=== PATIENT | female | born 1970 | race African-American/Black ===

== ENCOUNTER 2017-06-23 07:14 | Emergency (ER) | payer BC ==
[~2017-06-23] VITALS: Ht 177.8 cm; Wt 88.0 kg
[~2017-06-23 07:14] MED LIST: BACTRIM; BENTYL 10 MG CA10 M1 PO; CELEXA40 MG PO; CIPRO 500MG TA500 MG PO; CLONAZEPAM PO; FLAGYL500 MG PO; HYDROCODON-ACE1 EACH PO; MACROBID 100 M100 M1 PO; NAPROSYN500 MG PO; NORCO 5-325 TA1 EACH PO; PHENERGAN 25 MG25 M1 PO; TIZANIDINE HCL4 M1 PO; TRAMADOL 50 MG50 MG PO; VALERIAN ROOT PO; ZOFRAN 4 MG ORAL4 MG PO; ZOFRAN ODT4 MG PO
[2017-06-23 07:17] VITALS: BP 145/60
[2017-06-23] MEDS ORDERED: PREDNISONE 20 M20 MG PO (07:53)
[2017-06-23] MEDS ORDERED: TRAMADOL 50 MG50 MG PO (07:53)
== END 2017-06-23 08:52 | disposition home or self-care (01) ==
LOC: ER 07:14
DX: M54.32 Sciatica, left side (principal); F32.9 Major depressive disorder, single episode, unspecified; F41.9 Anxiety disorder, unspecified; Z86.2 Personal history of diseases of the blood and blood-forming organs and certain disorders involving the immune mechanism; Z98.890 Other specified postprocedural states; Z88.1 Allergy status to other antibiotic agents

== ENCOUNTER 2017-08-11 22:02 | Inpatient (IN) | payer BC ==
[~2017-08-11] VITALS: Ht 177.8 cm; Wt 86.2 kg
--- NOTE | ~2017-08-11 | EKG ---
[address] [address] ELECTROCARDIOGRAM REPORT Name: POLLY CHASE Room #: 418- ADM IN M.R.#: [id number] Admission: 08/12/17 Attend Phys: Kvng Hinds MD Discharge: Date of : 72 Report #: [id number] THIS REPORT FOR: //name// [facility] ED Test Date: 2017-08-12 Test Time: 10:59:33 Pat Name: POLLY CHASE Department: Room: 418 Gender: F Manager [employer] Development: jreif : 1970 Requested By: La Nena Avalos Order Number: [id number] MD: Brent Mccarty Measurements Intervals [place] Rate: 75 P: 62 TN: 143 QRS: 44 QRSD: 98 T: 20 QT: 357 QTc: 399 Interpretive Statements Sinus rhythm Nonspecific T wave abnormality Compared to ECG 02/19/2007 12:50:25 No significant changes Electronically Signed On 08-13-2017 7:53:05 ACID CONCENTRATOR by Brent Mccarty [email or web address] <ELECTRONICALLY SIGNED> By: Brent Mccarty MD, [facility] 08/13/17 0753 1059 1059 Brent Mccarty MD, [facility] /EPI
[~2017-08-11 22:02] MED LIST changes: +PREDNISONE 20 M20 MG PO
[2017-08-11 22:20] VITALS: BP 164/79
[2017-08-11 22:51] LABS: URINE BILIRUBIN NEGATIVE (Negative); URINE BLOOD 1+ (Negative); URINE CLARITY SL CLOUDY; URINE COLOR YELLOW; URINE GLUCOSE-RANDOM* NEGATIVE (Negative); URINE KETONES NEGATIVE (Negative); URINE NITRITE-REFLEX NEGATIVE (Negative); URINE PROTEIN (DIPSTICK) 1+ (Negative); URINE UROBILINOGEN 0.2 E.U./dl (0.2-1.0)
[2017-08-11 22:52] LABS: URINE LEUKOCYTES-REFLEX TRACE (Negative)
[2017-08-11 23:05] LABS: SQUAMOUS >10 Many /LPF (0-3)
[2017-08-11 23:06] LABS: CASTS None Seen /LPF (None Seen); CRYSTALS None Seen /LPF (None Seen); URINE RBC 3-10 Few /HPF (0-2); URINE WBC-REFLEX >25 Many /HPF (0-5)
[2017-08-11 23:26] LABS: HEMATOCRIT 32.3 % (37.0-47.0); HEMOGLOBIN 10.8 gm/dL (12.0-15.0); MCH 33.4 pg (26.0-34.0); MCHC 33.5 g/dL (28.0-37.0); MCV 99.7 fL (80.0-100.0); PLATELET COUNT 248 thou/uL (150-400); RBC 3.24 mil/uL (4.20-5.00); RDW 12.9 % (10.5-14.5); WBC 19.5 thou/uL (4.0-11.0)
[2017-08-11] MEDS ORDERED: COZAAR 50 MG TA50 M2 PO (23:28)
[2017-08-11] MEDS ORDERED: ZOCOR20 MG PO (23:28)
[2017-08-11] MEDS ORDERED: MOBIC15 MG PO (23:29)
[2017-08-11 23:35] LABS: CALCIUM 8.9 mg/dL (8.5-10.1); CREATININE 0.8 mg/dL (0.6-1.0); POTASSIUM 3.7 mmol/L (3.5-5.1)
[2017-08-11 23:41] LABS: ALBUMIN 3.7 g/dL (3.4-5.0); TOTAL BILIRUBIN 1.1 mg/dL (<0.1-1.0); TOTAL PROTEIN 7.5 g/dL (6.4-8.2)
[2017-08-12 00:34] LABS: ABSOLUTE NEUTROPHILS 16.6 thou/uL (1.4-8.2)
[2017-08-12 08:49] LABS: HEMATOCRIT 32.7 % (37.0-47.0); HEMOGLOBIN 10.9 gm/dL (12.0-15.0); MCH 33.4 pg (26.0-34.0); MCHC 33.3 g/dL (28.0-37.0); MCV 100.3 fL (80.0-100.0); RBC 3.26 mil/uL (4.20-5.00); RDW 12.9 % (10.5-14.5); WBC 22.7 thou/uL (4.0-11.0)
[2017-08-12 08:55] LABS: CALCIUM 8.7 mg/dL (8.5-10.1); CREATININE 0.9 mg/dL (0.6-1.0); POTASSIUM 3.6 mmol/L (3.5-5.1)
[2017-08-12 11:27] VITALS: BP 171/80
[2017-08-12 11:54] VITALS: BP 153/79
[2017-08-12 19:05] VITALS: BP 132/71
[2017-08-13 03:35] VITALS: BP 143/80
[2017-08-13 07:15] VITALS: BP 137/72
[2017-08-13 09:02] LABS: HEMATOCRIT 31.3 % (37.0-47.0); HEMOGLOBIN 10.2 gm/dL (12.0-15.0); MCH 32.8 pg (26.0-34.0); MCHC 32.5 g/dL (28.0-37.0); MCV 100.9 fL (80.0-100.0); RBC 3.1 mil/uL (4.20-5.00); RDW 12.8 % (10.5-14.5); WBC 15.2 thou/uL (4.0-11.0)
[2017-08-13 09:14] LABS: CALCIUM 8.4 mg/dL (8.5-10.1); CREATININE 0.8 mg/dL (0.6-1.0); POTASSIUM 3.8 mmol/L (3.5-5.1)
[2017-08-13 15:29] VITALS: BP 174/88
[2017-08-13 19:10] VITALS: BP 113/65
[2017-08-13 19:25] VITALS: BP 144/83
[2017-08-13 23:40] VITALS: BP 155/81
[2017-08-14 04:16] VITALS: BP 174/94
[2017-08-14 05:57] LABS: HEMATOCRIT 27.7 % (37.0-47.0); HEMOGLOBIN 9.3 gm/dL (12.0-15.0); MCH 33.8 pg (26.0-34.0); MCHC 33.6 g/dL (28.0-37.0); MCV 100.7 fL (80.0-100.0); RBC 2.75 mil/uL (4.20-5.00); RDW 12.7 % (10.5-14.5); WBC 11.1 thou/uL (4.0-11.0)
[2017-08-14 06:09] LABS: CALCIUM 8.4 mg/dL (8.5-10.1); CREATININE 0.7 mg/dL (0.6-1.0); MAGNESIUM 1.9 mg/dL (1.8-2.4); POTASSIUM 3.5 mmol/L (3.5-5.1)
[2017-08-14 07:11] VITALS: BP 179/69
[2017-08-14 15:02] VITALS: BP 156/69
[2017-08-14 19:42] VITALS: BP 152/73
[2017-08-15 03:38] VITALS: BP 155/85
[2017-08-15 06:13] LABS: HEMOGLOBIN 9.6 gm/dL (12.0-15.0); MCH 33.3 pg (26.0-34.0); MCHC 33.1 g/dL (28.0-37.0); MCV 100.7 fL (80.0-100.0); RBC 2.88 mil/uL (4.20-5.00); RDW 12.4 % (10.5-14.5); WBC 9.1 thou/uL (4.0-11.0)
[2017-08-15 06:30] LABS: CALCIUM 8.4 mg/dL (8.5-10.1); CREATININE 0.7 mg/dL (0.6-1.0); MAGNESIUM 1.8 mg/dL (1.8-2.4); POTASSIUM 3.5 mmol/L (3.5-5.1)
[2017-08-15 08:25] VITALS: BP 178/70
[2017-08-15] MEDS ORDERED: CIPRO500 MG PO (13:47)
[2017-08-15 15:02] VITALS: BP 178/70
== END 2017-08-15 15:48 | disposition home or self-care (01) | DRG 872 ==
LOC: ER 22:02 → 4E 08-12 01:15 → EROBS 08-12 01:15 → 4E 08-12 11:41
PROVIDERS: Internal Medicine; Nurse Practitioner Acute Care; Physician Assistant
DX: A41.9 Sepsis, unspecified organism (principal); N12 Tubulo-interstitial nephritis, not specified as acute or chronic; F32.9 Major depressive disorder, single episode, unspecified; I10 Essential (primary) hypertension; F41.9 Anxiety disorder, unspecified; E78.00 Pure hypercholesterolemia, unspecified; Z88.1 Allergy status to other antibiotic agents; Z90.710 Acquired absence of both cervix and uterus; Z82.49 Family history of ischemic heart disease and other diseases of the circulatory system
CPT/HCPCS: 10084

== ENCOUNTER 2018-08-29 22:22 | Emergency (ER) | payer BC ==
[~2018-08-29] VITALS: Ht 177.8 cm; Wt 85.7 kg
[~2018-08-29 22:22] MED LIST changes: +CIPRO500 MG PO; +COZAAR 50 MG TA50 M2 PO; +MOBIC15 MG PO; +ZOCOR20 MG PO
[2018-08-29] MEDS ORDERED: FOLIC ACID1 MG PO (22:33)
[2018-08-29] MEDS ORDERED: ACYCLOVIR 200200 MG PO (22:34)
[2018-08-29] MEDS ORDERED: CENTRUM SILVER1 EAC4 PO (22:34)
[2018-08-29] MEDS ORDERED: VITAMIN B-12500 MCG PO (22:34)
[2018-08-30 00:56] LABS: HEMATOCRIT 32.7 % (37.0-47.0); HEMOGLOBIN 11.2 gm/dL (12.0-15.0); MCHC 34.3 g/dL (28.0-37.0); MCV 99.1 fL (80.0-100.0); PLATELET COUNT 291 thou/uL (150-400); RDW 12.9 % (10.5-14.5); WBC 7.5 thou/uL (4.0-11.0)
[2018-08-30 00:57] LABS: URINE BILIRUBIN NEGATIVE (Negative); URINE BLOOD 1+ (Negative); URINE CLARITY CLEAR; URINE COLOR YELLOW; URINE GLUCOSE-RANDOM* NEGATIVE (Negative); URINE KETONES NEGATIVE (Negative); URINE LEUKOCYTES-REFLEX NEGATIVE (Negative); URINE NITRITE-REFLEX NEGATIVE (Negative); URINE PROTEIN (DIPSTICK) NEGATIVE (Negative)
[2018-08-30 01:01] LABS: CALCIUM 8.9 mg/dL (8.5-10.1); CREATININE 0.8 mg/dL (0.6-1.0); POTASSIUM 4.4 mmol/L (3.5-5.1)
[2018-08-30 01:05] LABS: BACTERIA-REFLEX 1-9 Few /HPF (None Seen); CASTS None Seen /LPF (None Seen); CRYSTALS None Seen /LPF (None Seen); MUCUS 4-6 Moderate strn/LPF (None Seen); SQUAMOUS 4-10 Moderate /LPF (0-3); URINE RBC 3-10 Few /HPF (0-2); URINE WBC-REFLEX 6-15 Few /HPF (0-5)
[2018-08-30 01:12] LABS: ALBUMIN 3.8 g/dL (3.4-5.0); DIRECT BILIRUBIN 0.1 mg/dL (<0.1-0.3); TOTAL BILIRUBIN 0.6 mg/dL (<0.1-1.0); TOTAL PROTEIN 7.4 g/dL (6.4-8.2)
[2018-08-30 01:34] LABS: ABSOLUTE NEUTROPHILS 3.5 thou/uL (1.4-8.2)
[2018-08-30 01:36] LABS: PLATELET ESTIMATE NORMAL; POLYCHROMASIA 1+
[2018-08-30] MEDS ORDERED: IBUPROFEN 800800 MG PO (03:00)
[2018-08-30] MEDS ORDERED: FLAGYL500 M1 PO (03:00)
[2018-08-30 03:13] VITALS: BP 127/60
== END 2018-08-30 03:18 | disposition home or self-care (01) ==
LOC: ER 22:22
PROVIDERS: Emergency Medicine
DX: A59.9 Trichomoniasis, unspecified (principal); I10 Essential (primary) hypertension; E78.00 Pure hypercholesterolemia, unspecified; Z88.1 Allergy status to other antibiotic agents

== ENCOUNTER 2019-06-01 22:31 | Emergency (ER) | payer BC ==
[~2019-06-01] VITALS: Ht 177.8 cm; Wt 85.7 kg
[~2019-06-01 22:31] MED LIST changes: +ACYCLOVIR 200200 MG PO; +CENTRUM SILVER1 EAC4 PO; +FLAGYL500 M1 PO; +FOLIC ACID1 MG PO; +IBUPROFEN 800800 MG PO; +VITAMIN B-12500 MCG PO
[2019-06-01 23:22] LABS: URINE BILIRUBIN NEGATIVE (Negative); URINE BLOOD TRACE (Negative); URINE CLARITY CLEAR; URINE COLOR YELLOW; URINE GLUCOSE-RANDOM* NEGATIVE (Negative); URINE KETONES NEGATIVE (Negative); URINE LEUKOCYTES-REFLEX NEGATIVE (Negative); URINE NITRITE-REFLEX NEGATIVE (Negative); URINE PROTEIN (DIPSTICK) NEGATIVE (Negative); URINE SPECIFIC GRAVITY >= 1.030 (1.005-1.035); URINE UROBILINOGEN 0.2 E.U./dl (0.2-1.0)
[2019-06-01 23:23] LABS: ABSOLUTE NEUTROPHILS 5.3 thou/uL (1.4-8.2); BASOPHILS 0.8 % (0.0-2.0); EOSINOPHILS 2.8 % (0.0-3.0); HEMATOCRIT 35.2 % (37.0-47.0); HEMOGLOBIN 11.6 gm/dL (12.0-15.0); LYMPHOCYTES 33.9 % (24.0-44.0); MCH 33.4 pg (26.0-34.0); MCHC 32.9 g/dL (28.0-37.0); MCV 101.7 fL (80.0-100.0); MONOCYTES 10.1 % (1.0-8.0); PLATELET COUNT 322 thou/uL (150-400); POLYS 52.4 % (36.0-66.0); RBC 3.46 mil/uL (4.20-5.00); RDW 12.8 % (10.5-14.5)
[2019-06-01 23:25] LABS: ANION GAP 9 mmol/L (7-16); BUN 17 mg/dL (7-18); CALCIUM 9.2 mg/dL (8.5-10.1); CHLORIDE 103 mmol/L (98-107); CO2 27 mmol/L (21-32); CREATININE 1.1 mg/dL (0.6-1.0); GLUCOSE 99 mg/dL (74-106); SODIUM 139 mmol/L (136-145)
[2019-06-01 23:31] LABS: ALBUMIN 3.6 g/dL (3.4-5.0); DIRECT BILIRUBIN < 0.1 mg/dL (<0.1-0.2); SGOT 15 U/L (15-37); SGPT 25 U/L (30-65); TOTAL BILIRUBIN 0.3 mg/dL (<0.1-1.0); TOTAL PROTEIN 7.7 g/dL (6.4-8.2)
[2019-06-02] MEDS ORDERED: NAPROSYN500 MG PO (01:33)
[2019-06-02] MEDS ORDERED: NORFLEX100 MG PO (01:33)
[2019-06-02] MEDS ORDERED: ULTRAM 50MG TAB50 MG PO (01:33)
[2019-06-02 01:55] VITALS: BP 129/51
--- NOTE | 2019-06-02 15:03 | EKG ---
[address] [address] ELECTROCARDIOGRAM REPORT Name: POLLY CHASE [id number]mission: 06/01/19 Attend Phys: Discharge: 06/02/19 Date of : 72 Report #: [id number] THIS REPORT FOR: //name// [facility] ED Test Date: 2019-06-01 Test Time: 22:36:37 Pat Name: POLLY CHASE Department: Room: Gender: Veneer Marker: [facility] : 1970 Requested By: Kameron De La Rosa Order Number: [id number] MD: Aydin Olvera Measurements Intervals [place] Rate: 48 P: 75 CA: 139 QRS: 60 QRSD: 104 T: 42 QT: 427 QTc: 382 Interpretive Statements Sinus bradycardia Compared to ECG 08/12/2017 10:59:33 Sinus rhythm no longer present T-wave abnormality no longer present Electronically Signed On 06-02-2019 15:03:14 ENTERTAINMENT MANAGER by Aydin Olvera [email or web address] <ELECTRONICALLY SIGNED> By: Aydin Olvera MD 06/02/19 1503 [id number] 35 Aydin Olvera MD /CIRILO
== END 2019-06-02 02:02 | disposition home or self-care (01) ==
LOC: ER 22:31
PROVIDERS: Emergency Medicine
DX: R07.89 Other chest pain (principal); I10 Essential (primary) hypertension; E78.00 Pure hypercholesterolemia, unspecified; F41.9 Anxiety disorder, unspecified; F32.9 Major depressive disorder, single episode, unspecified; Z86.2 Personal history of diseases of the blood and blood-forming organs and certain disorders involving the immune mechanism; Z98.890 Other specified postprocedural states; Z90.710 Acquired absence of both cervix and uterus; Z88.1 Allergy status to other antibiotic agents